=== PATIENT | female | born 1980 | race Caucasian/White ===

== ENCOUNTER → 2019-01-31 22:01 | Observation (INO) ==
[2019-01-31] MEDS: *HR* Labetalol 20 MG/4 ML SYRINGE IVP ONE ×3 (17:31→18:02)
--- NOTE | 2019-01-31 17:40 | OB/GYN History & Physical ---
Date of Encounter: 01/31/19 Time of Encounter: 17:34 Assessment and Plan (1) 34 weeks gestation of Current visit: Yes Status: Acute (2) Chronic hypertension in obstetric context in third trimester Current visit: Yes Status: Acute Severe range pressures on admission treated with 20 mg IV labetalol. Will continue her PO meds at home. 24 hour urine. Administer steroids. Labs on admission with repeat in 24 hours. (3) Modified White class B pregestational diabetes mellitus Current visit: Yes Status: Acute Continue her home meds, but anticipate coverage needed for steroid time. Explained the effects to the patient. History of Present Illness Chief complaint: sent from the office for nonreactive NST HPI: Ms. Izquierdo is a 38 year old female G1 at 34 6/7 weeks sent to labor and delivery from her NST appointment for nonreactive NST and hypertension. Patient has chronic hypertension, class B diabetes, advanced maternal age. She states she was seen by MFM this morning and no insulin adjustments were required. She states she has been under great control during the . She then was told her BP was up so she should keep her appointment for NST for another BP check the same day. She states she recently had her labetolol increased from bid to tid. She states she has taken her 2 doses today as scheduled. She denies any headaches visual changes, or RUQ pain. She denies any labor symptoms. She states she overall feels well and is confused as to why her blood pressure is up all of the sudden. She states she has had hypertension since age 18 and was treated with lisinopril prior to her . She states she completed a 24 hour urine earlier this year. Past Med Surg Social Fam HX - Past Medical History Source: patient Medical history: diabetes, hypertension Psychiatric history: no psych history - Past Surgical History Surgical History: no surgical history - Social History Smoking Status: Former smoker Smokeless Tobacco Status: No Alcohol use: none Drug use: none Obstetrical History - Pregnancies : 1 Medications and Allergies Aspirin 81 mg PO DAILY 01/31/19 [History] Ferrous Sulfate 324 mg PO DAILY 01/31/19 [History] HumuLIN N 8 units SQ QAM 01/31/19 [History] HumuLIN N 10 units SQ QPM 01/31/19 [History] Labetalol HCl 200 mg PO TID 09/23/19 [History] Vitamin Tablet 1 tab PO DAILY 01/31/19 [History] metFORMIN 1,000 mg PO BID 01/31/19 [History] Allergy/AdvReac Type Severity Reaction Status Date / Time No Known Allergies Allergy Verified 01/31/19 16:48 Review of System OB All systems PM: reviewed and no additional remarkable complaints except as stated - Constitutional Constitutional ROS IM: no chills, no fatigue, no headache(s) - Gastrointestinal Gastrointestinal: no abdominal pain, no bloating, no nausea, no vomiting Exam - Constitutional Constitutional: well developed, well nourished, morbidly obese - HEENT HEENT: EOMI, Normocephaly, Mucus Membranes Moist - Lungs Respiratory exam: CTAB - Cardiovascular Cardiovascular exam: RRR - Abdomen Abdomen: Present: bowel sounds normal, gravid, non tender - Extremities Deep Tendon Reflex Grade: 2+ Normal - Comments Comments: FHTs baseline 130 with accels and reactive Results All other labs normal. - VTE Reasons for not Prescribing Prophylaxis: Treatment not Indicated - Low risk for VTE
[2019-01-31 17:51] LABS: Basophils % 0.2 %; Eosinophils % 0.7 %; Hemoglobin 9.7 g/dL (11.5-15.4); Mean Corpuscular Volume 67.1 fL (83.0-100.0); Red Cell Distribution Width 15.9 % (11.5-14.5)
[2019-01-31 17:54] LABS: Eosinophils # 0.1 K/mcL (0.0-0.6); Hematocrit 29.6 % (35.3-44.9); Immature Granulocytes % 0.4 % (0-4); Immature Platelets 9.7 % (1.1-6.1); Lymphocytes % 14.8 %; Mean Corpuscular HGB Conc 32.8 g/dL (31.6-35.5); Mean Platelet Volume 11.4 fL (9.4-12.4); Monocytes # 0.8 K/mcL (0.0-1.3); Monocytes % 6.1 %; Neutrophils # 10.4 K/mcL (1.6-8.9); Platelet Count 223 K/mcL (140-400); Red Blood Count 4.41 M/mcL (3.82-4.97); Segmented Neutrophils % 77.8 %; White Blood Count 13.4 K/mcL (4.3-11.1)
[2019-01-31 17:58] LABS: Amphetamine Screen,Urine Negative ng/mL (Cutoff=1000); Barbiturate Screen,Urine Negative ng/mL (Cutoff=200); Benzodiazepines Screen,Urine Negative ng/mL (Cutoff=200); Cannabinoid Screen,Urine Negative ng/mL (Cutoff = 50); Cocaine Screen,Urine Negative ng/mL (Cutoff= 300); Opiate Screen,Urine Negative ng/mL (Cutoff=300); Phencyclidine Screen,Urine Negative ng/mL (Cutoff=25)
[2019-01-31 18:07] LABS: Alanine Aminotransferase 10 Units/L (7-52); Aspartate Amino Transferase 9 Units/L (13-39); BUN/Creatinine Ratio 16 (6-26); Blood Urea Nitrogen 7 mg/dL (6-20); Lactate Dehydrogenase 112 Units/L (140-271); Uric Acid 4.5 mg/dL (2.3-7.6); eGFR For African Americans > 60 (> 60); eGFR For Non-African Americans > 60 (> 60)
[2019-01-31 18:50] LABS: Microcytosis Present (Not Present); Platelet Estimate Normal (Normal); Reactive Lymphocytes Present (Not Present)
[2019-01-31 20:29] LABS: Protein/Creatinine Ratio,Urine 0.15 mg/mg (0.00-0.20)
[~2019-01-31 22:01] MED LIST: *HR* Labetalol 20 MG/4 ML SYRINGE IVP ONE; *HR* Metformin 500 MG TABLET PO SCH; Aspirin 81 MG TAB.CHEW PO SCH; Betamethasone Acet/SodPhos 30 MG/5 ML VIAL IM SCH; Calcium Gluconate 1,000 MG/10 ML VIAL ONE; Insulin NPH 100 UNIT/ML (x5UNIT) SQ SCH; Magnesium Sulfate 20 gm/500mL 20 GM/500 ML IV.SOLN IVC SCH; NIFEdipine 10 MG CAPSULE PO ONE; Prenatal Vit/FA 1 EACH TABLET PO SCH; Ringers Solution, Lactated 1,000 ML IVC SCH; Ringers Solution, Lactated 1,000 ML ONE
--- NOTE | 2019-01-31 22:16 | Event Note ---
Date of Encounter: 01/31/19 Time of Encounter: 20:45 Due to continued elevated severe range blood pressures, the labetolol protocol including a 5 and 10 mg IV of hydralazine. MFM was called at [facility]. We spoke about the patient's blood pressures and GDM class B who is comanaged with [facility]. Dr. Cardenas recommended Nifedipine 10 mg IR PO now with repeat if needed. Bolus with Magnesium sulfate and continue with 2 gm/hour. Transfer to [facility] for higher level of care and potential for mother and baby to be together . Following her 10 mg PO of procardia her blood pressure did fall below severe range x 3 readings and was sent to [facility] via [facility] transfer.
== END | disposition other institution (70) ==
LOC: 1NENULAB
PROVIDERS: ADMIT Advanced Practice Midwife; ATTEND Advanced Practice Midwife